=== PATIENT | female | born 1990 | race American Indian/Alaskan Native ===

== ENCOUNTER 2017-05-10 05:54 | Emergency (ER) | payer MEDICAID ==
--- NOTE | 2017-05-10 06:54 | Emergency Department Report ---
HPI - General Chief Complaint: Vaginal Bleeding Time Seen by Provider: 05/10/17 06:38 - HPI HPI: This is a 26 year-old female who drove herself and be seen today with complaint of some lower abdominal and/or pelvic sharp pains as well as some recent vaginal bleeding, all while . The patient believes she is about 7.5 weeks as she had a previous home test and confirmation of by her SEARCH ENGINE OPTIMIZATION SPECIALIST, whose name she cannot currently remember. The patient is also on a few days of Flagyl thus far for treatment of trichomoniasis which was noticed and treated by her SEARCH ENGINE OPTIMIZATION SPECIALIST as well. The patient is with 3 previous abortions and one live child. She is not taking anything for her discomfort prior to presentation. Patient says that she had some moderate vaginal bleeding last night and went through 3 panty liners but now she is just having some mild spotting. She denies any fever, dysuria. She says that the pain has been going on "since I have no known I was " which was a few weeks ago. No recent travel or sick contacts at home. ED Past Medical Hx - Past Medical History Previous Medical History?: Yes Hx Asthma: Yes Additional medical history: Vaginal delivery 2009 - Surgical History Past Surgical History?: No - Social History Smoking Status: Never Smoker Substance Use Type: None - Medications Home Medications: Home Medications Medication Instructions Recorded Confirmed Last Taken Type Ibuprofen [Advil] 200 mg PO Q6H PRN 12/17/13 12/17/13 12/17/13 History Phenazopyridine HCl [Azo] 95 mg PO DAILY 12/17/13 12/17/13 12/17/13 History HYDROcodone/ACETAMINOPHEN [[place] 1 each PO Q6HR PRN #20 tablet 12/18/13 Unknown Rx 5/325 Tablet] Ibuprofen [Motrin] 600 mg PO Q8H PRN #60 tablet 12/18/13 Unknown Rx Promethazine [Phenergan] 25 mg PO Q6H PRN #20 tablet 12/18/13 Unknown Rx Sulfamethoxazole/Trimethoprim 1 each PO BID #20 tablet 12/18/13 Unknown Rx [Bactrim Ds] Ibuprofen [Motrin] 800 mg PO Q8H #30 tablet 07/24/14 Unknown Rx Magnesium Citrate [Citrate of 1 bottle PO ONCE #1 bottle 06/08/15 Unknown Rx Magnesia] Acetaminophen/Codeine [Tylenol 1 tab PO Q6H PRN #10 tab 07/01/15 Unknown Rx /Codeine # 3 tab] Cephalexin [Keflex] 500 mg PO Q12HR #14 cap 07/01/15 Unknown Rx Prednisone [predniSONE 10 mg 10 mg PO .TAPER #1 tab.ds.pk 07/01/15 Unknown Rx (6-Day Pack, 21 Tabs)] Miconazole/Skin Cleanser No.17 1 each VG ONCE #1 kit 05/10/17 Unknown Rx [Monistat 3 Combo Pack] ED Review of Systems ROS: Stated complaint: VAG BLEEDING; 8 WKS PREG Other details as noted in HPI Comment: All other systems reviewed and negative Constitutional: denies: chills, fever Eyes: denies: eye pain, eye discharge, vision change ENT: denies: ear pain, throat pain Respiratory: denies: cough, shortness of breath, wheezing Cardiovascular: denies: chest pain, palpitations Gastrointestinal: abdominal pain. denies: nausea, vomiting Genitourinary: other (Vaginal bleeding). denies: dysuria, discharge Musculoskeletal: denies: arthralgia, myalgia Skin: denies: rash, lesions Neurological: denies: headache, weakness, paresthesias Physical Exam - Physical Exam Vital Signs: Vital Signs 05/10/17 06:02 Temperature 98.4 F Pulse Rate 88 Respiratory 82 H Rate Blood Pressure 118/76 O2 Sat by Pulse 100 Oximetry Physical Exam: GENERAL: The patient is well-developed well-nourished. HENT: Normocephalic. Atraumatic. Patient has moist mucous membranes. EYES: Extraocular motions are intact. Pupils equal reactive to light bilaterally. NECK: Supple. No meningitic signs are noted. There is no adenopathy noted. CHEST/LUNGS: Clear to auscultation. There is no respiratory distress noted. HEART/CARDIOVASCULAR: Regular. There is no tachycardia. There is no gallop rub or murmur. ABDOMEN: Abdomen is soft, nontender to palpation. No guarding rebound tenderness. Patient has normal bowel sounds. There is no abdominal distention. SKIN: Skin is warm and dry. NEURO: The patient is awake, alert, and oriented. The patient is cooperative. The patient has no focal neurologic deficits. The patient has normal speech. MUSCULOSKELETAL: There is no tenderness or deformity. There is no limitation range of motion. There is no evidence of acute injury. : There is a small amount of brownish discharge as well as a very small amount of white thick discharge seen in the vaginal vault. No bleeding. ED Course Vital Signs 05/10/17 06:02 Temperature 98.4 F Pulse Rate 88 Respiratory 82 H Rate Blood Pressure 118/76 O2 Sat by Pulse 100 Oximetry ED Medical Decision Making - Lab Data Result diagrams: 05/10/17 06:41 05/10/17 06:41 - Radiology Data Radiology results: report reviewed Transvaginal/obstetric ultrasound shows a live intrauterine at about 8 weeks. - Medical Decision Making 26-year-old female presents the emergency department with a complaint of a few weeks of some lower abdominal and pelvic discomfort and some recent vaginal bleeding. The patient also is being treated for trichomoniasis by her SEARCH ENGINE OPTIMIZATION SPECIALIST. Labs are mostly unremarkable. Urinalysis does not show any urinary tract infection. Ultrasound shows a live intrauterine at about 8 weeks. Pelvic exam showed possible mild yeast infection so placed on 3 day course of Monistat. She will continue with vitamins. She will follow up with her SEARCH ENGINE OPTIMIZATION SPECIALIST. We discussed the diagnosis of threatened miscarriage but ultrasound shows that everything appears stable at this time. She will return with any worsening of her symptoms or any acute distress. - Differential Diagnosis , threatened miscarriage, spontaneous miscarriage, fibroids Critical Care Time: No Critical care attestation.: If time is entered above; I have spent that time in minutes in the direct care of this critically ill patient, excluding procedure time. ED Disposition Clinical Impression: Ivone infection of genital region, Threatened Qualifiers: Weeks of gestation: 8 weeks Qualified Code(s): Z3A.08 - 8 weeks gestation of Disposition: DC-01 TO HOME OR SELFCARE Is pt being admited?: No Condition: Stable Instructions: Threatened Miscarriage (ED), (ED), Vulvovaginal Candidiasis (ED) Additional Instructions: Please follow-up with your SEARCH ENGINE OPTIMIZATION SPECIALIST in the next few days. Continue with your vitamins. Continue with your Flagyl or the treatment prescribed for your trichomoniasis by your SEARCH ENGINE OPTIMIZATION SPECIALIST. I have placed her on a 3 day course of Monistat. He can take Tylenol every 4 hours, using weight-based dosing, as needed for any discomfort. Return to the emergency Department with any worsening of her symptoms or any acute distress. Prescriptions: Miconazole/Skin Cleanser No.17 [Monistat 3 Combo Pack] 1 each VG ONCE #1 kit Referrals: PRIMARY CARE, [Primary Care Provider] - 3-5 Days Time of Disposition: 10:58
[2017-05-10 06:59] LABS: Basophils % (Auto) 0.8 % (0.0-1.8); Eosinophils % (Auto) 2.6 % (0.0-4.3); Hematocrit 34.1 % (30.3-42.9); Hemoglobin 11.7 gm/dl (10.1-14.3); Mean Corpuscular HGB Conc 34 % (30-34); Mean Corpuscular Hemoglobin 33 pg (28-32); Mean Corpuscular Volume 95 fl (79-97); Platelet Count 194 K/mm3 (140-440); Red Blood Count 3.59 M/mm3 (3.65-5.03); Red Cell Distribution Width 13.2 % (13.2-15.2); White Blood Count 5.2 K/mm3 (4.5-11.0)
[2017-05-10 07:09] LABS: Anion Gap 16 mmol/L; Blood Urea Nitrogen 6 mg/dL (7-17); Calcium 8.7 mg/dL (8.4-10.2); Carbon Dioxide 23 mmol/L (22-30); Chloride 99.2 mmol/L (98-107); Glucose 81 mg/dL (65-100); Potassium 3.8 mmol/L (3.6-5.0); Sodium 134 mmol/L (137-145)
[2017-05-10 07:45] VITALS: BP 128/82
--- NOTE | 2017-05-10 09:20 | Ultrasound Report ---
ULTRASOUND OB LESS THAN 14 WEEKS - TRANSABDOMINAL AND TRANSVAGINAL INDICATION: , vaginal bleeding. Serum beta-hCG value 104,011 units. COMPARISON: None similar. FINDINGS: Transabdominal and transvaginal pelvic sonography performed in this patient with LMP of 03/12/2017 and estimated menstrual age of 8 weeks and 3 days. It demonstrates a retroverted gravid uterus estimated at 12.7 x 7 x 8.9 cm with a single, viable intrauterine gestation with heart rate of 156 beats per minute. Mean gestational sac diameter of 3.18 cm corresponds to 8 weeks and 3 days. Mean crown-rump length of 1.52 cm corresponds to 7 weeks and 6 days. Approximately 4 mm yolk sac. Small subchorionic hemorrhage may be present. Unremarkable included urinary bladder. Cervix closed. Small nabothian cyst. Both maternal ovaries seen, unremarkable and measuring 2.5 x 1.5 x 1.7 cm on the right. Approximately 4.4 x 2.3 x 2.9 cm left ovary demonstrates a 2.1 cm peripheral cyst, endovaginal image 25. CONCLUSION: 1. Single, live intrauterine gestation with an ultrasound estimated age of 8 weeks and 1 day and [place] of 12/19/2017. 2. Other findings, as above. Thank you for the opportunity to participate in this patient's care.
[2017-05-10] MEDS ORDERED: TYLENOL PO ONE (09:45)
[2017-05-10 10:48] LABS: Bacteria,Urine 1+ /HPF (Negative); Bilirubin,Urine NEG (Negative); Blood,Urine MOD (Negative); Ketones,Urine TR mg/dL (Negative); Leukocyte Esterase,Urine SM (Negative); Mucus,Urine 3+ /HPF; Nitrite,Urine NEG (Negative); Protein,Urine <15 mg/dL mg/dL (Negative)
== END 2017-05-10 11:36 | disposition home or self-care (01) ==
LOC: ED 05:54
DX: O20.0 Threatened abortion (principal); O98.811 Other maternal infectious and parasitic diseases complicating pregnancy, first trimester; B37.9 Candidiasis, unspecified; J45.909 Unspecified asthma, uncomplicated; Z3A.08 8 weeks gestation of pregnancy
CPT/HCPCS: 36415; 76801; 76817; 80048; 81001; 84702; 85025; 86850; 86900; 86901

== ENCOUNTER 2017-05-26 19:16 | Emergency (ER) | payer MEDICAID ==
[2017-05-26 19:35] VITALS: BP 111/78
[2017-05-26 20:02] LABS: Hematocrit 35.5 % (30.3-42.9); Hemoglobin 12.1 gm/dl (10.1-14.3); Mean Corpuscular HGB Conc 34 % (30-34); Mean Corpuscular Hemoglobin 32 pg (28-32); Mean Corpuscular Volume 95 fl (79-97); Platelet Count 207 K/mm3 (140-440); Red Blood Count 3.74 M/mm3 (3.65-5.03); Red Cell Distribution Width 12.9 % (13.2-15.2); White Blood Count 6.3 K/mm3 (4.5-11.0)
[2017-05-26 21:09] LABS: Bacteria,Urine 2+ /HPF (Negative); Bilirubin,Urine NEG (Negative); Blood,Urine NEG (Negative); Ketones,Urine NEG (Negative); Leukocyte Esterase,Urine TR (Negative); Mucus,Urine 2+ /HPF; Nitrite,Urine NEG (Negative); Protein,Urine <15 mg/dL mg/dL (Negative)
--- NOTE | 2017-05-26 22:04 | Emergency Department Report ---
ED Female HPI - General Chief complaint: Vaginal Bleeding Stated complaint: MEDICAL CLEARANCE Time Seen by Provider: 05/26/17 21:48 Source: patient Mode of arrival: Ambulatory Limitations: No Limitations - History of Present Illness Initial comments: 26 years old female in weeks' came today with lower abdominal pain and vaginal discharge and burning sensation with urination. Patient was seen here 2 weeks ago treated for Trichomonas with Flagyl. She stated that her symptoms completely gone. She stated her significant other did not finish his treatment and she think that she had the same symptoms back again. Patient just came from her OB doctor office and she was given a prescription for Macrobid for bacterial infection. Patient preferred not to have a pelvic exam since she think this is the same symptoms that she had last time. Denied any vaginal bleeding,no significant abdominal cramping and no other symptom at this time. Ultrasound report reviewed from last visit. MD Complaint: dysuria, pelvic pain -: Gradual, week(s) Radiation: suprapubic Severity scale (0 -10): 3 Quality: dull Consistency: intermittent Are you Now?: Yes Associated Symptoms: vaginal discharge, abdominal pain, dysuria. denies: nausea /vomiting, fever/chills, headaches, hematuria, rash - Related Data Sexually active: Yes Home Medications Medication Instructions Recorded Confirmed Last Taken Ibuprofen [Advil] 200 mg PO Q6H PRN 12/17/13 12/17/13 12/17/13 Phenazopyridine HCl [Azo] 95 mg PO DAILY 12/17/13 12/17/13 12/17/13 Previous Rx's Medication Instructions Recorded Last Taken Type HYDROcodone/ACETAMINOPHEN [[place] 1 each PO Q6HR PRN #20 tablet 12/18/13 Unknown Rx 5/325 Tablet] Ibuprofen [Motrin] 600 mg PO Q8H PRN #60 tablet 12/18/13 Unknown Rx Promethazine [Phenergan] 25 mg PO Q6H PRN #20 tablet 12/18/13 Unknown Rx Sulfamethoxazole/Trimethoprim 1 each PO BID #20 tablet 12/18/13 Unknown Rx [Bactrim Ds] Ibuprofen [Motrin] 800 mg PO Q8H #30 tablet 07/24/14 Unknown Rx Magnesium Citrate [Citrate of 1 bottle PO ONCE #1 bottle 06/08/15 Unknown Rx Magnesia] Acetaminophen/Codeine [Tylenol 1 tab PO Q6H PRN #10 tab 07/01/15 Unknown Rx /Codeine # 3 tab] Cephalexin [Keflex] 500 mg PO Q12HR #14 cap 07/01/15 Unknown Rx Prednisone [predniSONE 10 mg 10 mg PO .TAPER #1 tab.ds.pk 07/01/15 Unknown Rx (6-Day Pack, 21 Tabs)] Miconazole/Skin Cleanser No.17 1 each VG ONCE #1 kit 05/10/17 Unknown Rx [Monistat 3 Combo Pack] metroNIDAZOLE [Flagyl] 500 mg PO Q12HR #14 tab 05/26/17 Unknown Rx Allergies Allergy/AdvReac Type Severity Reaction Status Date / Time No Known Allergies Allergy Unverified 12/17/13 20:50 ED Review of Systems ROS: Stated complaint: MEDICAL CLEARANCE Other details as noted in HPI Comment: All other systems reviewed and negative Constitutional: denies: chills, fever Respiratory: denies: cough, shortness of breath Cardiovascular: denies: chest pain Gastrointestinal: abdominal pain. denies: nausea, vomiting Genitourinary: urgency, dysuria, frequency, discharge ED Past Medical Hx - Past Medical History Previous Medical History?: Yes Hx Asthma: Yes Additional medical history: Vaginal delivery 2009 - Social History Smoking Status: Unknown if ever smoked - Medications Home Medications: Home Medications Medication Instructions Recorded Confirmed Last Taken Type Ibuprofen [Advil] 200 mg PO Q6H PRN 12/17/13 12/17/13 12/17/13 History Phenazopyridine HCl [Azo] 95 mg PO DAILY 12/17/13 12/17/13 12/17/13 History HYDROcodone/ACETAMINOPHEN [[place] 1 each PO Q6HR PRN #20 tablet 12/18/13 Unknown Rx 5/325 Tablet] Ibuprofen [Motrin] 600 mg PO Q8H PRN #60 tablet 12/18/13 Unknown Rx Promethazine [Phenergan] 25 mg PO Q6H PRN #20 tablet 12/18/13 Unknown Rx Sulfamethoxazole/Trimethoprim 1 each PO BID #20 tablet 12/18/13 Unknown Rx [Bactrim Ds] Ibuprofen [Motrin] 800 mg PO Q8H #30 tablet 07/24/14 Unknown Rx Magnesium Citrate [Citrate of 1 bottle PO ONCE #1 bottle 06/08/15 Unknown Rx Magnesia] Acetaminophen/Codeine [Tylenol 1 tab PO Q6H PRN #10 tab 10/29/15 Unknown Rx /Codeine # 3 tab] Cephalexin [Keflex] 500 mg PO Q12HR #14 cap 07/01/15 Unknown Rx Prednisone [predniSONE 10 mg 10 mg PO .TAPER #1 tab.ds.pk 07/01/15 Unknown Rx (6-Day Pack, 21 Tabs)] Miconazole/Skin Cleanser No.17 1 each VG ONCE #1 kit 05/10/17 Unknown Rx [Monistat 3 Combo Pack] metroNIDAZOLE [Flagyl] 500 mg PO Q12HR #14 tab 05/26/17 Unknown Rx ED Physical Exam - General Limitations: No Limitations General appearance: alert - Head Head exam: Present: normocephalic - Eye Eye exam: Present: normal appearance - ENT ENT exam: Present: normal exam - Neck Neck exam: Present: normal inspection - Respiratory Respiratory exam: Present: normal lung sounds bilaterally - Cardiovascular Cardiovascular Exam: Present: regular rate, normal rhythm, normal heart sounds - GI/Abdominal GI/Abdominal exam: Present: soft, normal bowel sounds, organomegaly (gravid uterus). Absent: distended, tenderness, guarding, rebound, rigid, diminished bowel sounds, mass, bruit, pulsatile mass, hernia - Back Exam Back exam: Absent: CVA tenderness (R), CVA tenderness (L) - Neurological Exam Neurological exam: Present: alert, oriented X3, CN II-XII intact - Skin Skin exam: Present: warm, intact, normal color ED Course Vital Signs 05/26/17 19:24 Temperature 98.8 F Pulse Rate 97 H Respiratory 20 Rate Blood Pressure 111/78 O2 Sat by Pulse 100 Oximetry ED Medical Decision Making - Lab Data Result diagrams: 05/26/17 19:51 - Medical Decision Making I reviewed the patient's previous records which include pelvic ultrasound. Patient does not have any vaginal bleeding or abdominal to indicates another pelvic ultrasound. I will start patient on Flagyl and advised her to take Macrobid as described Critical care attestation.: If time is entered above; I have spent that time in minutes in the direct care of this critically ill patient, excluding procedure time. ED Disposition Clinical Impression: UTI in , Trichomonal cervicitis Disposition: TO HOME OR SELFCARE Is pt being admited?: No Condition: Stable Instructions: Trichomoniasis (ED), Urinary Tract Infection in Women (ED) Prescriptions: metroNIDAZOLE [Flagyl] 500 mg PO Q12HR #14 tab Referrals: PRIMARY CARE, [Primary Care Provider] - 3-5 Days Forms: STI Treatment and Prevention
== END 2017-05-26 22:45 | disposition home or self-care (01) ==
LOC: ED 19:16
DX: O23.31 Infections of other parts of urinary tract in pregnancy, first trimester (principal); O98.311 Other infections with a predominantly sexual mode of transmission complicating pregnancy, first trimester; A59.09 Other urogenital trichomoniasis; Z3A.10 10 weeks gestation of pregnancy; J45.909 Unspecified asthma, uncomplicated
CPT/HCPCS: 36415; 81001; 85027; 87076; 87086; 87186; 99284

== ENCOUNTER 2017-06-12 10:37 | Emergency (ER) | payer MEDICAID ==
--- NOTE | 2017-06-12 10:58 | Emergency Department Report ---
Chief Complaint: Nausea/Vomiting/Diarrhea Stated Complaint: SPOTTING Time Seen by Provider: 06/12/17 10:54 - HPI History of Present Illness: PT states she is 13 weeks . PT states yesterday she started vomiting and spotting - ROS Review of Systems: + back pain + spotting + generalized weakness - Exam Vital Signs: Vital Signs 06/12/17 10:46 Temperature 98.9 F Pulse Rate 115 H Respiratory 20 Rate Blood Pressure 96/59 O2 Sat by Pulse 100 Oximetry Physical Exam: PT looks well, non toxic abd soft and non tender MSE screening note: Focused history and physical exam performed. Due to findings the following was ordered: labs, us ED Disposition for MSE Condition: Stable
[2017-06-12 11:40] LABS: Bilirubin,Urine NEG (Negative); Blood,Urine NEG (Negative); Ketones,Urine NEG (Negative); Leukocyte Esterase,Urine TR (Negative); Mucus,Urine 3+ /HPF; Nitrite,Urine NEG (Negative); Protein,Urine <15 mg/dL mg/dL (Negative); Urobilinogen,Urine < 2.0 mg/dL (<2.0)
[2017-06-12] MEDS ORDERED: TYLENOL PO ONE (12:20)
[2017-06-12 12:21] VITALS: BP 96/59
[2017-06-12] MEDS ORDERED: TYLENOL ONE (12:24)
[2017-06-12 13:32] LABS: Basophils % (Auto) 0.2 % (0.0-1.8); Eosinophils % (Auto) 0.2 % (0.0-4.3); Hematocrit 37.7 % (30.3-42.9); Hemoglobin 13.2 gm/dl (10.1-14.3); Mean Corpuscular HGB Conc 35 % (30-34); Mean Corpuscular Hemoglobin 33 pg (28-32); Mean Corpuscular Volume 94 fl (79-97); Platelet Count 198 K/mm3 (140-440); Red Cell Distribution Width 13.2 % (13.2-15.2)
[2017-06-12 13:54] LABS: Alanine Aminotransferase 9 units/L (7-56); Albumin 3.8 g/dL (3.9-5); Alkaline Phosphatase 27 units/L (35-129); Anion Gap 22 mmol/L; BUN/Creatinine Ratio 18; Blood Urea Nitrogen 7 mg/dL (7-17); Calcium 9.3 mg/dL (8.4-10.2); Carbon Dioxide 20 mmol/L (22-30); Chloride 97.5 mmol/L (98-107); Glucose 75 mg/dL (65-100); Potassium 3.3 mmol/L (3.6-5.0); Sodium 136 mmol/L (137-145); Total Protein 7.5 g/dL (6.3-8.2)
== END 2017-06-12 21:47 | disposition left against medical advice (07) ==
LOC: ED 10:37
DX: O20.9 Hemorrhage in early pregnancy, unspecified (principal); O21.0 Mild hyperemesis gravidarum; Z3A.13 13 weeks gestation of pregnancy; Z53.21 Procedure and treatment not carried out due to patient leaving prior to being seen by health care provider
CPT/HCPCS: 36415; 76801; 80053; 81001; 84702; 85025; 86900; 86901